=== PATIENT | female | born 1980 | race African-American/Black ===

== ENCOUNTER 2016-08-10 12:37 | Emergency (ER) | payer OTHER ==
[2016-08-10] MEDS ORDERED: SODIUM CHLORIDE 0.9% 500 ML IV STA (13:31)
[2016-08-10 14:38] LABS: Basophils % (A) 1 %; CH 31.3; CHCM 33.4; Eosinophils # (A) 0.2 k/uL (0-0.7); Eosinophils % (A) 2 %; HDW 2.48; HGB 11.3 gm/dL (11.4-16.0); Luc # (Auto) 0.24; Luc % (Auto) 3; Lymphocytes # (A) 4.1 k/uL (1.0-4.8); Lymphocytes % (A) 45 %; MCH 30.4 pg (25.0-35.0); MCHC 32.2 g/dL (31.0-37.0); MCV 94.3 fL (80.0-100.0); Mean Platelet Volume 7.5; Monocytes # (A) 0.4 k/uL (0-1.0); Monocytes % (A) 5 %; Neutrophils # (A) 4.1 k/uL (1.3-7.7); Neutrophils % (A) 46 %; RBC 3.71 m/uL (3.80-5.40); RDW 13.3 % (11.5-15.5); WBC 9.1 k/uL (3.8-10.6); WBC (Perox) 8.64
[2016-08-10 14:46] LABS: Appearance,Urine Cloudy (Clear); Bacteria,Urine Rare /hpf; Bilirubin,Urine Negative (Negative); Glucose,Urine (UA) Negative (Negative); Ketones,Urine Negative (Negative); Leukocyte Esterase,Urine Negative (Negative); Mucus,Urine Occasional /hpf; Nitrite,Urine Negative (Negative); PH, Urine 6.5 (5.0-8.0); Particle Count 7427; Protein,Urine Negative (Negative); RBC,Urine 4 /hpf (0-5); Squamous Epithelial Cell,Urine 12 /hpf (0-4); UA Billing (MACRO vs. MICRO) MICRO; Urobilinogen,Urine <2.0 mg/dL (<2.0); WBC,Urine 5 /hpf (0-5)
[2016-08-10 14:47] LABS: ALT 36 U/L (9-52); AST 19 U/L (14-36); Alkaline Phosphatase 62 U/L (38-126); Anion Gap 8 mmol/L; Blood Urea Nitrogen 9 mg/dL (7-17); Carbon Dioxide 23 mmol/L (22-30); Chloride 110 mmol/L (98-107); Glucose 82 mg/dL (74-99); Non-African American GFR(MDRD) >60 (>60 ml/min/1.73 sqM); Sodium 141 mmol/L (137-145); Total Bilirubin 0.4 mg/dL (0.2-1.3); Total Protein 6.2 g/dL (6.3-8.2)
--- NOTE | 2016-08-10 16:19 | ED ---
Female Urogenital HPI - General Chief complaint: Abdominal Pain Stated complaint: Abdominal Pain Time Seen by Provider: 08/10/16 12:59 Source: patient Mode of arrival: ambulatory Limitations: no limitations - History of Present Illness Initial comments: This patient is a 36-year-old woman who presents to have reevaluation for pelvic pain. She states this is been going on 3-4 weeks now. She describes the pain as a cramping or pressure sensation it is in the low abdomen, and it is moderate intensity. The pain does seem to get better and worse but it is more often than not. The patient has not noted any worsening or relieving factors. Patient was seen and had a positive test, but has subsequently had an ultrasound which was not able to identify . MD Complaint: pelvic pain Onset/Timin -: week(s) Location: suprapubic Radiation: non-radiating Severity: moderate Severity scale (1-10): 7 Quality: cramping Consistency: constant Improves with: none Worsens with: none Patient : Yes Associated Symptoms: denies other symptoms - Related Data Previous Rx's Medication Instructions Recorded Fluconazole [Diflucan] 150 mg PO ONCE #1 tab 08/10/16 Allergies Allergy/AdvReac Type Severity Reaction Status Date / Time No Known Allergies Allergy Verified 08/10/16 13:53 Review of Systems ROS Statement: Those systems with pertinent positive or pertinent negative responses have been documented in the HPI. ROS Other: All systems not noted in ROS Statement are negative. Constitutional: Denies: fever, chills Respiratory: Denies: cough, dyspnea Cardiovascular: Denies: chest pain, palpitations, edema, syncope Gastrointestinal: Reports: abdominal pain, nausea. Denies: vomiting, diarrhea, constipation, melena, hematochezia Genitourinary: Denies: dysuria, hematuria, abnormal menses, dyspareunia Musculoskeletal: Denies: back pain Skin: Denies: rash Neurological: Denies: headache, weakness, numbness Hematological/Lymphatic: Denies: easy bleeding Past Medical History Past Medical History: No Reported History History of Any Multi-Drug Resistant Organisms: None Reported Past Surgical History: No Surgical Hx Reported Past Psychological History: No Psychological Hx Reported Smoking Status: Current every day smoker Past Alcohol Use History: Occasional Past Drug Use History: None Reported General Exam Limitations: no limitations General appearance: alert, in no apparent distress Head exam: Present: atraumatic, normocephalic Eye exam: Present: normal appearance. Absent: scleral icterus, conjunctival injection Respiratory exam: Present: normal lung sounds bilaterally. Absent: respiratory distress, wheezes, rales, rhonchi, stridor Cardiovascular Exam: Present: regular rate, normal rhythm, normal heart sounds. Absent: systolic murmur, diastolic murmur, rubs, gallop GI/Abdominal exam: Present: soft, normal bowel sounds. Absent: distended, tenderness, guarding, rebound, rigid, mass, hernia Extremities exam: Present: normal inspection, normal capillary refill. Absent: pedal edema, calf tenderness Back exam: Present: normal inspection. Absent: CVA tenderness (R), CVA tenderness (L) Neurological exam: Present: alert Skin exam: Present: warm, dry, intact, normal color. Absent: rash Course Vital Signs 08/10/16 08/10/16 12:38 16:28 Temperature 98.9 F 97.2 F L Pulse Rate 65 70 Respiratory 20 18 Rate Blood Pressure 134/74 124/72 O2 Sat by Pulse 100 99 Oximetry - Reevaluation(s) Reevaluation #1: 08/10/16 16:27 We were approached by the patient's partner, who came to the nursing station to state that the patient had to leave for work. I went in and reexamine her abdomen, there is no rebound or guarding. The ultrasound report is not back and I discussed that there is a possibility this may show an emergent condition which would require surgery like ectopic . The patient understands and we reviewed her phone number to contact her should something emergent show up. We discussed otherwise following up for the repeat beta hCG and repeat ultrasound. Patient does have a aviation medicine specialist signed, Dr. Pete. Patient was also given contact information for our on-call apartment groundskeeper Dr. Plascencia. Medical Decision Making - Medical Decision Making Patient is a 36-year-old woman with low abdominal discomfort. Her beta hCG is 69 today, but the pelvic ultrasound is not revealing an obvious . Discussed the differential diagnosis with the patient and stressed that she needs to follow with the JAVA LEAD ENGINEER physician. Discussed return parameters and also having a repeat beta and ultrasound. - Lab Data Result diagrams: 08/10/16 14:19 08/10/16 14:19 Lab Results 08/10/16 08/10/1617 Range/Units 14:10 14:19 14:19 WBC (3.8-10.6) k/uL RBC (3.80-5.40) m/uL Hgb (11.4-16.0) gm/dL Hct (34.0-46.0) % MCV (80.0-100.0) fL MCH (25.0-35.0) pg MCHC (31.0-37.0) g/dL RDW (11.5-15.5) % Plt Count (150-450) k/uL Neutrophils % % Lymphocytes % % Monocytes % % Eosinophils % % Basophils % % Neutrophils # (1.3-7.7) k/uL Lymphocytes # (1.0-4.8) k/uL Monocytes # (0-1.0) k/uL Eosinophils # (0-0.7) k/uL Basophils # (0-0.2) k/uL Sodium 141 (137-145) mmol/L Potassium 4.0 (3.5-5.1) mmol/L Chloride 110 H (98-107) mmol/L Carbon Dioxide 23 (22-30) mmol/L Anion Gap 8 mmol/L BUN 9 (7-17) mg/dL Creatinine 0.56 (0.52-1.04) mg/dL Est GFR (MDRD) Af Amer >60 (>60 ml/min/1.73 sqM) Est GFR (MDRD) Non-Af >60 (>60 ml/min/1.73 sqM) Glucose 82 (74-99) mg/dL Calcium 9.0 (8.4-10.2) mg/dL Total Bilirubin 0.4 (0.2-1.3) mg/dL AST 19 (14-36) U/L ALT 36 (9-52) U/L Alkaline Phosphatase 62 (38-126) U/L Total Protein 6.2 L (6.3-8.2) g/dL Albumin 3.5 (3.5-5.0) g/dL HCG, Quant 69.0 mIU/mL Urine Color Yellow Urine Appearance Cloudy H (Clear) Urine pH 6.5 (5.0-8.0) Ur Specific [place] 1.020 (1.001-1.035) Urine Protein Negative (Negative) Urine Glucose (UA) Negative (Negative) Urine Ketones Negative (Negative) Urine Blood Trace H (Negative) Urine Nitrate Negative (Negative) Urine Bilirubin Negative (Negative) Urine Urobilinogen <2.0 (<2.0) mg/dL Ur Leukocyte Esterase Negative (Negative) Urine RBC 4 (0-5) /hpf Urine WBC 5 (0-5) /hpf Ur Squamous Epith Cells 12 H (0-4) /hpf Urine Bacteria Rare H (None) /hpf Urine Mucus Occasional H (None) /hpf Blood Type B Positive Blood Type Recheck No Antibody Screen NEGATIVE Spec Expiration Date 08/13/2016 - 231808/10/16 Range/Units 14:19 WBC 9.1 (3.8-10.6) k/uL RBC 3.71 L (3.80-5.40) m/uL Hgb 11.3 L (11.4-16.0) gm/dL Hct 35.0 (34.0-46.0) % MCV 94.3 (80.0-100.0) fL MCH 30.4 (25.0-35.0) pg MCHC 32.2 (31.0-37.0) g/dL RDW 13.3 (11.5-15.5) % Plt Count 342 (150-450) k/uL Neutrophils % 46 % Lymphocytes % 45 % Monocytes % 5 % Eosinophils % 2 % Basophils % 1 % Neutrophils # 4.1 (1.3-7.7) k/uL Lymphocytes # 4.1 (1.0-4.8) k/uL Monocytes # 0.4 (0-1.0) k/uL Eosinophils # 0.2 (0-0.7) k/uL Basophils # 0.0 (0-0.2) k/uL Sodium (137-145) mmol/L Potassium (3.5-5.1) mmol/L Chloride (98-107) mmol/L Carbon Dioxide (22-30) mmol/L Anion Gap mmol/L BUN (7-17) mg/dL Creatinine (0.52-1.04) mg/dL Est GFR (MDRD) Af Amer (>60 ml/min/1.73 sqM) Est GFR (MDRD) Non-Af (>60 ml/min/1.73 sqM) Glucose (74-99) mg/dL Calcium (8.4-10.2) mg/dL Total Bilirubin (0.2-1.3) mg/dL AST (14-36) U/L ALT (9-52) U/L Alkaline Phosphatase (38-126) U/L Total Protein (6.3-8.2) g/dL Albumin (3.5-5.0) g/dL HCG, Quant mIU/mL Urine Color Urine Appearance (Clear) Urine pH (5.0-8.0) Ur Specific [place] (1.001-1.035) Urine Protein (Negative) Urine Glucose (UA) (Negative) Urine Ketones (Negative) Urine Blood (Negative) Urine Nitrate (Negative) Urine Bilirubin (Negative) Urine Urobilinogen (<2.0) mg/dL Ur Leukocyte Esterase (Negative) Urine RBC (0-5) /hpf Urine WBC (0-5) /hpf Ur Squamous Epith Cells (0-4) /hpf Urine Bacteria (None) /hpf Urine Mucus (None) /hpf Blood Type Blood Type Recheck Antibody Screen Spec Expiration Date Disposition Clinical Impression: Threatened miscarriage in early , Yeast infection involving the vagina and surrounding area Disposition: HOME SELF-CARE Condition: Fair Instructions: Threatened Miscarriage (ED), Vulvovaginal Candidiasis (ED) Prescriptions: Fluconazole [Diflucan] 150 mg PO ONCE #1 tab Referrals: Darnell Pete DO [REFERRING] - 1-2 days Mirtha Plascencia DO [Doctor of Osteopathic Medicine] - 1-2 days
[2016-08-10 16:29] VITALS: BP 124/72; PULSE 70; RESP 18; TEMP 97.2
--- NOTE | 2016-08-10 16:55 | US ---
EXAMINATION TYPE: US OB <=14 wks transvag DATE OF EXAM: 08/10/2016 3:44 PM COMPARISON: NONE CLINICAL HISTORY: Pain. Bleeding 1 week ago, cramping now, irregular cycles, LMP = ? May 2016 EXAM PERFORMED: OBTA and TV EXAM MEASUREMENTS: GESTATIONAL AGE / DATING Physician Established: not established Dates by LMP: unknown Dates by First Scan: Assistant Cook here Dates by Current Scan for: N/A MATERNAL ANATOMY Uterus: 7.8 x 4.4 x 4.2cm Right Ovary: 3.5 x 1.6 x 2.4cm Left Ovary: 3.2 x 1.7 x 1.9cm Post CDS / Adnexa: mild free fluid Presence of free fluid: yes, CDS Presence of corpus luteal cyst: possible on the left = 2.0cm Presence of subchorionic bleed: no GESTATION / SURVEY CRL: not seen MSD: 0.4cm OOR = out of range to date Yolk Sac (normal less than 6mm): not seen IUP: possible gestational sac seen within fundus of uterus Date of LMP: unknown, May 2016 Beta HcG (if available): 69.0 TECHNOLOGIST IMPRESSION: Appearance of small gestational sac within uterus and possible left corpus luteal cyst, based on patients symptoms probable miscarriage or blighted ovum versus other etiology. IMPRESSION: 1. Normal pelvic ultrasound. 2. No intrauterine gestation identified. There is a tiny hypoechoic area within the endometrial canal which could be very early gestational sac. Correlation with beta-hCG and follow-up is recommended.
== END 2016-08-10 16:29 | disposition home or self-care (01) ==
LOC: EC 12:37
DX: O20.0 Threatened abortion (principal); Z3A.00 Weeks of gestation of pregnancy not specified; B37.3 Candidiasis of vulva and vagina; N83.12 Corpus luteum cyst of left ovary; O99.331 Smoking (tobacco) complicating pregnancy, first trimester; F17.200 Nicotine dependence, unspecified, uncomplicated
CPT/HCPCS: 36415; 76801; 76817; 80053; 81001; 84702; 85025; 86850; 86900; 86901; 99284

== ENCOUNTER 2017-01-15 17:18 | Emergency (ER) | payer OTHER ==
[2017-01-15] MEDS ORDERED: SODIUM CHLORIDE 0.9% 1,000 ML IV STA (17:41)
[2017-01-15] MEDS ORDERED: SODIUM CHLORIDE 0.9% 2,000 ML IV STA (17:41)
[2017-01-15] MEDS ORDERED: METOCLOPRAMIDE 5 MG/ML 2 ML VIAL IVP STA (17:41)
[2017-01-15 18:09] LABS: Basophils % (A) 0 %; CH 31.5; CHCM 34.7; Eosinophils # (A) 0.1 k/uL (0-0.7); Eosinophils % (A) 1 %; HCT 33.4 % (34.0-46.0); HDW 2.35; HGB 11.5 gm/dL (11.4-16.0); Luc % (Auto) 3; Lymphocytes # (A) 3.5 k/uL (1.0-4.8); Lymphocytes % (A) 34 %; MCH 31.3 pg (25.0-35.0); MCHC 34.4 g/dL (31.0-37.0); MCV 91.1 fL (80.0-100.0); Mean Platelet Volume 7.5; Monocytes # (A) 0.6 k/uL (0-1.0); Monocytes % (A) 5 %; Neutrophils # (A) 5.7 k/uL (1.3-7.7); Neutrophils % (A) 56 %; RBC 3.66 m/uL (3.80-5.40); RDW 13.7 % (11.5-15.5); WBC 10.2 k/uL (3.8-10.6); WBC (Perox) 10.49
--- NOTE | 2017-01-15 18:16 | ED ---
General Adult HPI - General Chief complaint: Nausea/Vomiting/Diarrhea Stated complaint: vomiting Time Seen by Provider: 01/15/17 17:33 Source: patient Mode of arrival: ambulatory Limitations: no limitations - History of Present Illness Initial comments: This 36-year-old Afro-Congolese female presents with a complaint of nausea as well as vomiting. His been present for approximately 5 days. She is unable to keep any food down. She is only able to keep some warmth jaime dayami down. She denies any actual abdominal pain, diarrhea, or constipation. She is unsure if she is . She states that she's not had a period in 2 months. She has not tested a home test as of yet. She states that she has 4 children at home and her body does not feel as though she is . She states that other people at her work have similar symptoms. She denies any urinary frequency urgency or dysuria. She denies any fevers or chills. No other complaints or modifying factors. - Related Data Previous Rx's Medication Instructions Recorded Metoclopramide [Reglan] 10 mg PO Q6H PRN #30 tab 01/15/17 Allergies Allergy/AdvReac Type Severity Reaction Status Date / Time No Known Allergies Allergy Verified 01/15/17 18:16 Review of Systems ROS Statement: Those systems with pertinent positive or pertinent negative responses have been documented in the HPI. ROS Other: All systems not noted in ROS Statement are negative. Past Medical History Past Medical History: No Reported History History of Any Multi-Drug Resistant Organisms: None Reported Past Surgical History: No Surgical Hx Reported Past Psychological History: No Psychological Hx Reported Smoking Status: Former smoker Past Alcohol Use History: Rare Past Drug Use History: None Reported General Exam - General Exam Comments Initial Comments: GENERAL: The patient is well nourished and well hydrated. VITAL SIGNS: Heart rate, blood pressure, respiratory rate reviewed as recorded in nurse's notes. EYES: Pupils are round and reactive. Extraocular movements are intact. No conjunctival / lid redness or swelling. ENT: No external evidence of injury, swelling, or ecchymosis. Airway is patent. Throat is clear. NECK: Nontender. No swelling or evidence of injury. No subcutaneous emphysema. Trachea is midline. No thyroid mass. HEART: Regular rate and rhythm. Good peripheral pulses. LUNGS/CHEST: Breath sounds clear and equal bilaterally. No rales, rhonchi, or wheezes. No ecchymosis, subcutaneous emphysema, or tenderness. ABDOMEN: Abdomen soft without tenderness. No palpable masses or organomegaly. No peritoneal signs. No abdominal wall swelling or ecchymosis. EXTREMITIES: No extremity tenderness. Normal muscle tone and function. No thoracolumbar tenderness. NEUROLOGIC: Sensation is grossly intact. Cranial nerve exam reveals face is symmetrical, tongue is midline, speech is clear. SKIN: No abrasions or ecchymosis is noted. No induration or masses noted. PSYCHIATRIC: Alert and oriented. Appropriate behavior and judgment. Limitations: no limitations Course Vital Signs 01/15/17 01/15/17 17:23 19:09 Temperature 98.2 F 98.8 F Pulse Rate 65 57 L Respiratory 16 18 Rate Blood Pressure 136/87 126/69 O2 Sat by Pulse 100 100 Oximetry Medical Decision Making - Medical Decision Making The patient was seen and examined. All diagnostics were reviewed. An IV was started and she was thoroughly hydrated. She received Reglan 10 mg IV. She is feeling improved on recheck. The test came back positive. Her CO2 is slightly low consistent with dehydration. Overall is felt as though she is stable for discharge. She'll be prescribed Reglan on an outpatient basis. She is agreeable to this plan. She does have an CONSUMER MARKETING SPECIALIST to follow-up with. She leaves in no identifiable distress. - Lab Data Result diagrams: 01/15/17 17:56 01/15/17 17:56 Lab Results 01/15/17 01/15/17 Range/Units 17:56 17:56 WBC 10.2 (3.8-10.6) k/uL RBC 3.66 L (3.80-5.40) m/uL Hgb 11.5 (11.4-16.0) gm/dL Hct 33.4 L (34.0-46.0) % MCV 91.1 (80.0-100.0) fL MCH 31.3 (25.0-35.0) pg MCHC 34.4 (31.0-37.0) g/dL RDW 13.7 (11.5-15.5) % Plt Count 370 (150-450) k/uL Neutrophils % 56 % Lymphocytes % 34 % Monocytes % 5 % Eosinophils % 1 % Basophils % 0 % Neutrophils # 5.7 (1.3-7.7) k/uL Lymphocytes # 3.5 (1.0-4.8) k/uL Monocytes # 0.6 (0-1.0) k/uL Eosinophils # 0.1 (0-0.7) k/uL Basophils # 0.0 (0-0.2) k/uL Sodium 137 (137-145) mmol/L Potassium 3.9 (3.5-5.1) mmol/L Chloride 109 H (98-107) mmol/L Carbon Dioxide 19 L (22-30) mmol/L Anion Gap 9 mmol/L BUN 7 (7-17) mg/dL Creatinine 0.53 (0.52-1.04) mg/dL Est GFR (MDRD) Af Amer >60 (>60 ml/min/1.73 sqM) Est GFR (MDRD) Non-Af >60 (>60 ml/min/1.73 sqM) Glucose 86 (74-99) mg/dL Calcium 9.2 (8.4-10.2) mg/dL Total Bilirubin 0.2 (0.2-1.3) mg/dL AST 20 (14-36) U/L ALT 22 (9-52) U/L Alkaline Phosphatase 59 (38-126) U/L Total Protein 6.5 (6.3-8.2) g/dL Albumin 3.8 (3.5-5.0) g/dL Amylase 87 (30-110) U/L Lipase 122 (23-300) U/L HCG, Qual Detected Disposition Clinical Impression: Nausea and vomiting, Dehydration, , Hyperemesis gravidarum Disposition: HOME SELF-CARE Condition: Good Instructions: Hyperemesis Gravidarum (ED), Dehydration (ED), (ED) Prescriptions: Metoclopramide [Reglan] 10 mg PO Q6H PRN #30 tab PRN Reason: Nausea Referrals: None,Stated [Primary Care Provider] - 1-2 days Time of Disposition: 20:24
[2017-01-15 18:20] LABS: HCG,Qualitative Serum Detected
[2017-01-15 18:42] LABS: ALT 22 U/L (9-52); AST 20 U/L (14-36); Alkaline Phosphatase 59 U/L (38-126); Amylase 87 U/L (30-110); Anion Gap 9 mmol/L; Blood Urea Nitrogen 7 mg/dL (7-17); Calcium 9.2 mg/dL (8.4-10.2); Carbon Dioxide 19 mmol/L (22-30); Chloride 109 mmol/L (98-107); Glucose 86 mg/dL (74-99); Non-African American GFR(MDRD) >60 (>60 ml/min/1.73 sqM); Potassium 3.9 mmol/L (3.5-5.1); Sodium 137 mmol/L (137-145); Total Bilirubin 0.2 mg/dL (0.2-1.3); Total Protein 6.5 g/dL (6.3-8.2)
[2017-01-15 19:14] VITALS: RESP 18
[2017-01-15 20:23] VITALS: BP 125/61; PULSE 63; TEMP 97.8
== END 2017-01-15 20:32 | disposition home or self-care (01) ==
LOC: EC 17:18
DX: O21.1 Hyperemesis gravidarum with metabolic disturbance (principal); Z87.891 Personal history of nicotine dependence; Z3A.00 Weeks of gestation of pregnancy not specified
CPT/HCPCS: 99284 ×2; 96361 ×2; 96374 ×2; 99283; 36415; 80053; 82150; 83690; 85025; 84703; J2765

== ENCOUNTER 2017-04-30 06:52 | Emergency (ER) | payer OTHER ==
[2017-04-30 06:57] VITALS: RESP 18; TEMP 99.2
[2017-04-30] MEDS ORDERED: ALBUTEROL NEBULIZED 2.5 MG/3 ML INHALATION STA (07:34)
[2017-04-30] MEDS ORDERED: diphenhydrAMINE 50 MG CAP PO STA (07:34)
[2017-04-30] MEDS ORDERED: ACETAMINOPHEN TAB 500 MG TAB PO STA (07:34)
[2017-04-30 08:03] VITALS: BP 100/60
[2017-04-30 08:24] VITALS: PULSE 95
--- NOTE | 2017-04-30 08:32 | XR ---
EXAMINATION TYPE: XR chest 1V DATE OF EXAM: 04/30/2017 COMPARISON: Chest x-ray December 24, 2015. HISTORY: Chest pain for a few days. TECHNIQUE: Single frontal view of the chest is obtained. FINDINGS: There is new patchy right basilar linear atelectasis. Left lung is clear. No pleural effus ion or pneumothorax is evident bilaterally. The cardiac silhouette size is within normal limits. Th e osseous structures are intact. IMPRESSION: New Patchy right basilar linear atelectasis.
[2017-04-30] MEDS ORDERED: AZITHROMYCIN 500 MG TAB PO STA (08:54)
--- NOTE | 2017-04-30 08:55 | ED ---
General Adult HPI - General Chief complaint: Upper Respiratory Infection Stated complaint: ENT Time Seen by Provider: 04/30/17 07:19 Source: patient, RN notes reviewed, old records reviewed Mode of arrival: ambulatory Limitations: no limitations - History of Present Illness Initial comments: 36 female the ER for evaluation of cough congestion. Patient admits to being . Patient denies any problems with , no vaginal pain no abdominal pain no bleeding. States he's had a cough for about 4 days not getting any better. At night. No change in medications. Patient thinks he has episodic fever but is also coughing up productive sputum. No significant sick sick contacts or travel history. - Related Data Previous Rx's Medication Instructions Recorded Albuterol Sulfate [Proair Hfa] 1 - 2 puff INHALATION Q4H #1 04/30/17 inhaler Azithromycin [Zithromax Z-pack] 0 mg PO DIRECTED #1 pack 04/30/17 Allergies Allergy/AdvReac Type Severity Reaction Status Date / Time No Known Allergies Allergy Verified 04/30/17 07:23 Review of Systems ROS Statement: Those systems with pertinent positive or pertinent negative responses have been documented in the HPI. ROS Other: All systems not noted in ROS Statement are negative. Past Medical History Past Medical History: No Reported History History of Any Multi-Drug Resistant Organisms: None Reported Past Surgical History: No Surgical Hx Reported Past Psychological History: No Psychological Hx Reported Smoking Status: Former smoker Past Alcohol Use History: Rare Past Drug Use History: None Reported General Exam Limitations: no limitations General appearance: alert, in no apparent distress Head exam: Present: atraumatic, normocephalic, normal inspection Eye exam: Present: normal appearance, PERRL, EOMI. Absent: scleral icterus, conjunctival injection, periorbital swelling ENT exam: Present: normal exam, mucous membranes moist Neck exam: Present: normal inspection. Absent: tenderness, meningismus, lymphadenopathy Respiratory exam: Present: normal lung sounds bilaterally. Absent: respiratory distress, wheezes, rales, rhonchi, stridor Cardiovascular Exam: Present: regular rate, normal rhythm, normal heart sounds. Absent: systolic murmur, diastolic murmur, rubs, gallop, clicks GI/Abdominal exam: Present: soft, normal bowel sounds. Absent: distended, tenderness, guarding, rebound, rigid Extremities exam: Present: normal inspection, full ROM, normal capillary refill. Absent: tenderness, pedal edema, joint swelling, calf tenderness Back exam: Present: normal inspection Neurological exam: Present: alert, oriented X3, CN II-XII intact Psychiatric exam: Present: normal affect, normal mood Skin exam: Present: warm, dry, intact, normal color. Absent: rash Course Vital Signs 04/30/17 04/30/17 04/30/17 06:55 08:00 08:09 Temperature 99.2 F Pulse Rate 107 H 96 96 Respiratory 18 18 Rate Blood Pressure 133/68 100/60 O2 Sat by Pulse 100 94 L Oximetry 04/30/17 08:24 Temperature Pulse Rate 95 Respiratory Rate Blood Pressure O2 Sat by Pulse Oximetry - Reevaluation(s) Reevaluation #1: Patient feels much improved and is ready for discharge at this time Medical Decision Making - Medical Decision Making 36 female DEL with increased cough and congestion. Patient believes she may have pneumonia. Patient's x-ray is positive for pneumonia and patient can be discharged home on antibiotics - Radiology Data Radiology results: report reviewed (Chest x-ray is negative for acute disease), image reviewed Disposition Clinical Impression: Upper respiratory infection, Community acquired bacterial pneumonia, Pneumonia affecting Disposition: HOME SELF-CARE Condition: Good Instructions: Community Acquired Pneumonia (ED) Prescriptions: Albuterol Sulfate [Proair Hfa] 1 - 2 puff INHALATION Q4H #1 inhaler Azithromycin [Zithromax Z-pack] 0 mg PO DIRECTED #1 pack Referrals: None,Stated [Primary Care Provider] - 1-2 days
--- NOTE | 2017-05-08 00:18 | CDI ---
Documentation Clarification OP Dear Dr. Eliazar Thakkar, DO Please do addendum to ED report that provides complete HPI, Physical Exam and MDM. Thank you, Ivonne Palomino Marine Tower Operator If you have any questions, please contact Assistant Food Service Director at [phone] [facility]
== END 2017-04-30 09:05 | disposition home or self-care (01) ==
LOC: EC 06:52
DX: O99.519 Diseases of the respiratory system complicating pregnancy, unspecified trimester (principal); J18.9 Pneumonia, unspecified organism; J06.9 Acute upper respiratory infection, unspecified; Z87.891 Personal history of nicotine dependence; Z3A.00 Weeks of gestation of pregnancy not specified
CPT/HCPCS: 71010; 94640; 99284

== ENCOUNTER 2018-07-21 08:00 | Emergency (ER) | payer OTHER ==
[2018-07-21 08:09] VITALS: RESP 18; TEMP 99.5
[2018-07-21] MEDS ORDERED: SODIUM CHLORIDE 0.9% 1,000 ML IV STA ×2 (08:37)
[2018-07-21] MEDS ORDERED: ONDANSETRON 4 MG/2 ML VIAL IVP STA (08:37)
[2018-07-21] MEDS ORDERED: KETOROLAC 30 MG/ML 1 ML VIAL IVP STA (08:37)
[2018-07-21] MEDS ORDERED: diphenhydrAMINE 50 MG/ML 1 ML VIAL IVP STA (08:40)
--- NOTE | 2018-07-21 08:43 | ED ---
Headache HPI - General Chief Complaint: Headache Stated Complaint: MIGRAINE X 4 DAYS, LOSS OF APPETITE Time Seen by Provider: 07/21/18 08:11 Source: RN notes reviewed, old records reviewed Mode of arrival: ambulatory Limitations: no limitations - History of Present Illness Initial Comments: Patient is a 37-year-old female with multiple complaints. She states that she is under much stress recently undergoing a divorce. She complains of a migraine for the past 4 days. She states that she's had episodes of vomiting and diarrhea. Low-grade fevers. She denies any abdominal pain. Patient states she has no cough congestion shortness of breath or sore throat. Patient states that she has had no history of sick contacts that she is aware of. She reports she just generally feels ill and uncomfortable. She is no significant history of migraines. She is a smoker. Denies any other significant medical history. - Related Data Previous Rx's Medication Instructions Recorded Ferrous Sulfate [Feosol] 325 mg PO DAILY #20 tab 07/21/18 Ondansetron HCl [Zofran] 4 mg PO TID #20 tablet 07/21/18 Allergies Allergy/AdvReac Type Severity Reaction Status Date / Time No Known Allergies Allergy Verified 07/21/18 08:14 Review of Systems ROS Statement: Those systems with pertinent positive or pertinent negative responses have been documented in the HPI. ROS Other: All systems not noted in ROS Statement are negative. Past Medical History Past Medical History: No Reported History Additional Past Medical History / Comment(s): anemia History of Any Multi-Drug Resistant Organisms: None Reported Past Surgical History: No Surgical Hx Reported Past Psychological History: No Psychological Hx Reported Smoking Status: Never smoker Past Alcohol Use History: Rare Past Drug Use History: Marijuana General Exam - General Exam Comments Initial Comments: Is a 37 year-old female. No significant distress. Limitations: no limitations General appearance: alert, in no apparent distress Head exam: Present: atraumatic, normocephalic, normal inspection Eye exam: Present: normal appearance, PERRL, EOMI. Absent: scleral icterus, conjunctival injection, periorbital swelling ENT exam: Present: normal exam, mucous membranes moist Neck exam: Present: normal inspection. Absent: tenderness, meningismus, lymphadenopathy Respiratory exam: Present: normal lung sounds bilaterally. Absent: respiratory distress, wheezes, rales, rhonchi, stridor Cardiovascular Exam: Present: regular rate, normal rhythm, normal heart sounds. Absent: systolic murmur, diastolic murmur, rubs, gallop, clicks GI/Abdominal exam: Present: soft, normal bowel sounds. Absent: distended, tenderness, guarding, rebound, rigid Extremities exam: Present: normal inspection, full ROM, normal capillary refill. Absent: tenderness, pedal edema, joint swelling, calf tenderness Back exam: Present: normal inspection Neurological exam: Present: alert, oriented X3, CN II-XII intact Psychiatric exam: Present: normal affect, normal mood Skin exam: Present: warm, dry, intact, normal color. Absent: rash Course Vital Signs 07/21/18 08:04 Temperature 99.5 F Pulse Rate 96 Respiratory 18 Rate Blood Pressure 133/94 O2 Sat by Pulse 98 Oximetry Medical Decision Making - Medical Decision Making 37-year-old female presented for migraine headache multitude of symptoms including vomiting and diarrhea. Patient was given IV fluids migraine cocktail labwork obtained. Laboratory was reviewed and relatively unremarkable. HCG is negative. She is intermittent stress currently undergoing a divorce. Take her 5 kids. She also relates to me that her sister was diagnosed with normal virus and she's been around her. Discussed with the low-grade temperatures vomiting and diarrhea but no abdominal pain Patient is likely suffering from the neurovirus as well. Patient will be discharged at this time with nausea medication. She also requests that she can have refill of iron supplements. She does have an appointment to follow-up with her primary care provider on Thursday. I will also add a thyroid test on she states that she is due for this. I discussed she help with these results with her PCP. Patient does feel better after migraine cocktail. Patient agrees to return parameters and following up. All questions were answered. - Lab Data Result diagrams: 07/21/18 08:56 07/21/18 08:56 Lab Results 07/21/18 07/21/18 07/21/18 Range/Units 08:56 08:56 08:56 WBC 7.5 (3.8-10.6) k/uL RBC 3.96 (3.80-5.40) m/uL Hgb 12.1 (11.4-16.0) gm/dL Hct 36.8 (34.0-46.0) % MCV 93.0 (80.0-100.0) fL MCH 30.5 (25.0-35.0) pg MCHC 32.8 (31.0-37.0) g/dL RDW 13.4 (11.5-15.5) % Plt Count 353 (150-450) k/uL Neutrophils % 49 % Lymphocytes % 42 % Monocytes % 4 % Eosinophils % 2 % Basophils % 0 % Neutrophils # 3.7 (1.3-7.7) k/uL Lymphocytes # 3.2 (1.0-4.8) k/uL Monocytes # 0.3 (0-1.0) k/uL Eosinophils # 0.1 (0-0.7) k/uL Basophils # 0.0 (0-0.2) k/uL Sodium 142 (137-145) mmol/L Potassium 4.0 (3.5-5.1) mmol/L Chloride 112 H (98-107) mmol/L Carbon Dioxide 25 (22-30) mmol/L Anion Gap 5 mmol/L BUN 10 (7-17) mg/dL Creatinine 0.68 (0.52-1.04) mg/dL Est GFR (CKD-EPI)AfAm >90 (>60 ml/min/1.73 sqM) Est GFR (CKD-EPI)NonAf >90 (>60 ml/min/1.73 sqM) Glucose 86 (74-99) mg/dL Calcium 9.4 (8.4-10.2) mg/dL Total Bilirubin 0.4 (0.2-1.3) mg/dL AST 19 (14-36) U/L ALT 23 (9-52) U/L Alkaline Phosphatase 60 (38-126) U/L Total Protein 6.3 (6.3-8.2) g/dL Albumin 3.8 (3.5-5.0) g/dL Amylase 112 H (30-110) U/L Lipase 129 (23-300) U/L Urine Color Yellow Urine Appearance Cloudy H (Clear) Urine pH 6.0 (5.0-8.0) Ur Specific [place] 1.024 (1.001-1.035) Urine Protein Trace H (Negative) Urine Glucose (UA) Negative (Negative) Urine Ketones Trace H (Negative) Urine Blood Negative (Negative) Urine Nitrite Negative (Negative) Urine Bilirubin Negative (Negative) Urine Urobilinogen 2.0 (<2.0) mg/dL Ur Leukocyte Esterase Negative (Negative) Urine RBC 1 (0-5) /hpf Urine WBC 1 (0-5) /hpf Ur Squamous Epith Cells 7 H (0-4) /hpf Urine Mucus Few H (None) /hpf Urine HCG, Qual (Not Detectd) 07/21/18 Range/Units 08:56 WBC (3.8-10.6) k/uL RBC (3.80-5.40) m/uL Hgb (11.4-16.0) gm/dL Hct (34.0-46.0) % MCV (80.0-100.0) fL MCH (25.0-35.0) pg MCHC (31.0-37.0) g/dL RDW (11.5-15.5) % Plt Count (150-450) k/uL Neutrophils % % Lymphocytes % % Monocytes % % Eosinophils % % Basophils % % Neutrophils # (1.3-7.7) k/uL Lymphocytes # (1.0-4.8) k/uL Monocytes # (0-1.0) k/uL Eosinophils # (0-0.7) k/uL Basophils # (0-0.2) k/uL Sodium (137-145) mmol/L Potassium (3.5-5.1) mmol/L Chloride (98-107) mmol/L Carbon Dioxide (22-30) mmol/L Anion Gap mmol/L BUN (7-17) mg/dL Creatinine (0.52-1.04) mg/dL Est GFR (CKD-EPI)AfAm (>60 ml/min/1.73 sqM) Est GFR (CKD-EPI)NonAf (>60 ml/min/1.73 sqM) Glucose (74-99) mg/dL Calcium (8.4-10.2) mg/dL Total Bilirubin (0.2-1.3) mg/dL AST (14-36) U/L ALT (9-52) U/L Alkaline Phosphatase (38-126) U/L Total Protein (6.3-8.2) g/dL Albumin (3.5-5.0) g/dL Amylase (30-110) U/L Lipase (23-300) U/L Urine Color Urine Appearance (Clear) Urine pH (5.0-8.0) Ur Specific [place] (1.001-1.035) Urine Protein (Negative) Urine Glucose (UA) (Negative) Urine Ketones (Negative) Urine Blood (Negative) Urine Nitrite (Negative) Urine Bilirubin (Negative) Urine Urobilinogen (<2.0) mg/dL Ur Leukocyte Esterase (Negative) Urine RBC (0-5) /hpf Urine WBC (0-5) /hpf Ur Squamous Epith Cells (0-4) /hpf Urine Mucus (None) /hpf Urine HCG, Qual Not Detected (Not Detectd) - Radiology Data Radiology results: report reviewed Patient 37-year-old female presents for his presenting with complaints of headache, nausea vomiting. Patient was given migraine cocktail. She has had lab work obtained. Lab work was reviewed. White blood cell count 7.5. Hemoglobin is 12.1. Sodium 142. Chloride 112. Potassium 4.0. Amylase is 112. Lipase 129. Kidney function was within normal limits. Bilirubin is stable. Liver enzymes are unremarkable. Urinalysis did show some trace ketones. No signs of infection. She she qualitative is negative. She was reevaluated after migraine cocktail. She does have some relief. Disposition Clinical Impression: Migraine, Nausea & vomiting Disposition: HOME SELF-CARE Condition: Good Instructions (If sedation given, give patient instructions): Acute Headache (ED ), Gastroenteritis (ED) Additional Instructions: Follow-up with primary care provider. Return to emergency department if any alarming signs or symptoms occur. Prescriptions: Ferrous Sulfate [Feosol] 325 mg PO DAILY #20 tab Ondansetron HCl [Zofran] 4 mg PO TID #20 tablet Is patient prescribed a controlled substance at d/c from ED?: No Referrals: Dalila Etienne MD [Primary Care Provider] - 1-2 days Time of Disposition: 10:21
[2018-07-21 09:30] LABS: Basophils % (A) 0 %; Eosinophils # (A) 0.1 k/uL (0-0.7); Eosinophils % (A) 2 %; HCT 36.8 % (34.0-46.0); HGB 12.1 gm/dL (11.4-16.0); Lymphocytes # (A) 3.2 k/uL (1.0-4.8); Lymphocytes % (A) 42 %; MCH 30.5 pg (25.0-35.0); MCHC 32.8 g/dL (31.0-37.0); Mean Platelet Volume 7.5; Monocytes # (A) 0.3 k/uL (0-1.0); Monocytes % (A) 4 %; Neutrophils # (A) 3.7 k/uL (1.3-7.7); Neutrophils % (A) 49 %; Platelet Count 353 k/uL (150-450); RBC 3.96 m/uL (3.80-5.40); RDW 13.4 % (11.5-15.5); WBC 7.5 k/uL (3.8-10.6)
[2018-07-21 09:40] LABS: ALT 23 U/L (9-52); AST 19 U/L (14-36); Albumin 3.8 g/dL (3.5-5.0); Alkaline Phosphatase 60 U/L (38-126); Amylase 112 U/L (30-110); Anion Gap 5 mmol/L; Blood Urea Nitrogen 10 mg/dL (7-17); Calcium 9.4 mg/dL (8.4-10.2); Carbon Dioxide 25 mmol/L (22-30); Chloride 112 mmol/L (98-107); Glucose 86 mg/dL (74-99); Lipase 129 U/L (23-300); Sodium 142 mmol/L (137-145); Total Bilirubin 0.4 mg/dL (0.2-1.3); Total Protein 6.3 g/dL (6.3-8.2)
[2018-07-21 09:47] LABS: Appearance,Urine Cloudy (Clear); Bilirubin,Urine Negative (Negative); Blood,Urine Negative (Negative); Color,Urine Yellow; Glucose,Urine (UA) Negative (Negative); Ketones,Urine Trace (Negative); Leukocyte Esterase,Urine Negative (Negative); Mucus,Urine Few /hpf; Nitrite,Urine Negative (Negative); Protein,Urine Trace (Negative); RBC,Urine 1 /hpf (0-5); Specific Gravity,Urine 1.024 (1.001-1.035); Squamous Epithelial Cell,Urine 7 /hpf (0-4); WBC,Urine 1 /hpf (0-5)
[2018-07-21 10:45] VITALS: BP 132/92; PULSE 56
[2018-07-21 11:39] LABS: T4, Free (Free Thyroxine) 0.75 ng/dL (0.78-2.19)
== END 2018-07-21 10:45 | disposition home or self-care (01) ==
LOC: EC 08:00
DX: G43.909 Migraine, unspecified, not intractable, without status migrainosus (principal); R19.7 Diarrhea, unspecified
CPT/HCPCS: 36415; 84439; 80053; 84443; 82150; 83690; 85025; 81001; 81025; 87086; 99284; 96374; 96375 ×2; 96361 ×2; J1200; J2405; J1885

== ENCOUNTER 2018-12-10 10:40 | Emergency (ER) | payer OTHER ==
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
[2018-12-10 12:14] LABS: ALT 16 U/L (9-52); AST 20 U/L (14-36); African American GFR (CKD) >90 (>60 ml/min/1.73 sqM); Albumin 4.6 g/dL (3.5-5.0); Alkaline Phosphatase 68 U/L (38-126); Anion Gap 12 mmol/L; Blood Urea Nitrogen 10 mg/dL (7-17); Calcium 10.3 mg/dL (8.4-10.2); Carbon Dioxide 18 mmol/L (22-30); Chloride 110 mmol/L (98-107); Glucose 99 mg/dL (74-99); Lipase 50 U/L (23-300); Potassium 3.9 mmol/L (3.5-5.1); Sodium 140 mmol/L (137-145); Total Bilirubin 0.4 mg/dL (0.2-1.3); Total Protein 7.5 g/dL (6.3-8.2)
[2018-12-10 12:16] LABS: Basophils % (A) 0 %; Eosinophils % (A) 0 %; HCT 36.5 % (34.0-46.0); HGB 12.4 gm/dL (11.4-16.0); Lymphocytes # (A) 1.8 k/uL (1.0-4.8); Lymphocytes % (A) 11 %; MCH 30.5 pg (25.0-35.0); MCV 89.6 fL (80.0-100.0); Mean Platelet Volume 7.4; Monocytes # (A) 0.4 k/uL (0-1.0); Monocytes % (A) 3 %; Neutrophils % (A) 84 %; Platelet Count 356 k/uL (150-450); RBC 4.07 m/uL (3.80-5.40); RDW 14.6 % (11.5-15.5); WBC 15.3 k/uL (3.8-10.6)
[2018-12-10 12:17] LABS: Appearance,Urine Cloudy (Clear); Bilirubin,Urine 1+ (Negative); Blood,Urine Negative (Negative); Color,Urine Yellow; Glucose,Urine (UA) Negative (Negative); Ketones,Urine 3+ (Negative); Leukocyte Esterase,Urine Negative (Negative); Mucus,Urine Many /hpf; Nitrite,Urine Negative (Negative); PH, Urine 6.5 (5.0-8.0); Protein,Urine 2+ (Negative); RBC,Urine 7 /hpf (0-5); Specific Gravity,Urine 1.032 (1.001-1.035); WBC,Urine 12 /hpf (0-5)
--- NOTE | 2018-12-10 12:20 | XR ---
EXAMINATION TYPE: XR hand complete RT DATE OF EXAM: 12/10/2018 CLINICAL HISTORY: Right hand pain and swelling after injury today TECHNIQUE: Frontal, lateral and oblique images of the right hand are obtained. COMPARISON: 10/06/2014 FINDINGS: There is no acute fracture/dislocation evident in the right hand. There is an old fracture deformity of the fifth proximal metacarpal unchanged from 2014. The joint spaces in the right hand a ppear within normal limits. The overlying soft tissue appears unremarkable. IMPRESSION: There is no acute fracture or dislocation in the right hand.
[2018-12-10] MEDS ORDERED: SODIUM CHLORIDE 0.9% 1,000 ML IV STA (12:39)
--- NOTE | 2018-12-10 12:52 | XR ---
EXAMINATION TYPE: XR chest 1V portable DATE OF EXAM: 12/10/2018 COMPARISON: Prior chest x-ray 04/30/2017 HISTORY: Trauma and pain TECHNIQUE: Single frontal view of the chest is obtained. FINDINGS: Patient is rotated. There is no focal air space opacity, pleural effusion, or pneumothorax seen. The cardiac silhouette size is within normal limits. The osseous structures are intact. IMPRESSION: No acute process.
[2018-12-10 13:35] VITALS: BP 140/90; PULSE 79; RESP 18
[2018-12-10 13:50] VITALS: TEMP 98.2
== END 2018-12-10 13:50 | disposition home or self-care (01) ==
LOC: EC 10:40
DX: O9A.211 Injury, poisoning and certain other consequences of external causes complicating pregnancy, first trimester (principal); S63.91XA Sprain of unspecified part of right wrist and hand, initial encounter; O99.111 Other diseases of the blood and blood-forming organs and certain disorders involving the immune mechanism complicating pregnancy, first trimester; D72.829 Elevated white blood cell count, unspecified; O99.89 Other specified diseases and conditions complicating pregnancy, childbirth and the puerperium; R82.4 Acetonuria; O21.9 Vomiting of pregnancy, unspecified; Z3A.01 Less than 8 weeks gestation of pregnancy; V03.90XA Pedestrian on foot injured in collision with car, pick-up truck or van, unspecified whether traffic or nontraffic accident, initial encounter; Y09 Assault by unspecified means; Y92.410 Unspecified street and highway as the place of occurrence of the external cause
CPT/HCPCS: 36415; 71045; 80053; 81001; 81025; 83690; 85025; 87086; 96360; 99284

== ENCOUNTER → 2018-12-14 | Outpatient (CLI) | payer OTHER | END | disposition home or self-care (01) | LOC: LABWHC1 09:21 | PROVIDERS: ATTEND Obstetrics & Gynecology | DX: N91.2 Amenorrhea, unspecified (principal) | CPT/HCPCS: 36415; 84702 ==